=== PATIENT | female | born 1985 | race African-American/Black ===

== ENCOUNTER 2016-12-01 18:06 | Emergency (ER) | payer OTHER ==
[~2016-12-01] VITALS: Ht 162.6 cm; Wt 120.5 kg
[~2016-12-01 18:06] MED LIST: CYCL10 PO; IBUP-2070 PO; TRAM50TA4 PO
[2016-12-01] MEDS ORDERED: IBUPROFEN 800 MG TABLET PO ONE (18:30)
[2016-12-01 19:37] VITALS: BP 150/92
== END 2016-12-01 19:47 | disposition home or self-care (01) ==
LOC: EMS 18:06
DX: S93.402A Sprain of unspecified ligament of left ankle, initial encounter (principal); Z88.6 Allergy status to analgesic agent; I10 Essential (primary) hypertension; W50.2XXA Accidental twist by another person, initial encounter; Y93.01 Activity, walking, marching and hiking; Y92.488 Other paved roadways as the place of occurrence of the external cause; Y99.8 Other external cause status
CPT/HCPCS: 29540; 99284

== ENCOUNTER 2017-01-26 10:20 | Emergency (ER) | payer OTHER ==
[~2017-01-26] VITALS: Ht 160 cm; Wt 85.0 kg
[~2017-01-26 10:20] MED LIST changes: -IBUP-2070 PO; -TRAM50TA4 PO
[2017-01-26] MEDS ORDERED: GABA-529 PO (10:34)
[2017-01-26] MEDS ORDERED: TRAM50TA4 PO (10:34)
[2017-01-26 12:36] VITALS: BP 159/79
== END 2017-01-26 13:30 | disposition home or self-care (01) ==
LOC: EMS 10:21
DX: R10.30 Lower abdominal pain, unspecified (principal); I10 Essential (primary) hypertension; V49.40XA Driver injured in collision with unspecified motor vehicles in traffic accident, initial encounter; Y93.89 Activity, other specified; Y92.89 Other specified places as the place of occurrence of the external cause; Y99.8 Other external cause status
CPT/HCPCS: 99284

== ENCOUNTER 2017-05-13 22:30 | Emergency (ER) | payer OTHER ==
[~2017-05-13] VITALS: Ht 162.6 cm; Wt 120.0 kg
[~2017-05-13 22:30] MED LIST changes: +GABA-529 PO; +TRAM50TA4 PO
[2017-05-14 01:27] VITALS: BP 139/85
[2017-05-14] MEDS ORDERED: PredniSONE 20 MG TABLET PO ONE (01:45)
== END 2017-05-14 01:29 | disposition home or self-care (01) ==
LOC: EMS 22:35
DX: H60.91 Unspecified otitis externa, right ear (principal); H66.92 Otitis media, unspecified, left ear; I10 Essential (primary) hypertension
CPT/HCPCS: 99283; J7512

== ENCOUNTER 2018-04-16 20:25 | Observation (INO) | payer OTHER ==
[~2018-04-16] VITALS: Ht 162.6 cm; Wt 125.6 kg
[~2018-04-16 20:25] MED LIST changes: -CYCL10 PO; -TRAM50TA4 PO
[2018-04-16 21:39] VITALS: BP 127/71
[2018-04-16] MEDS ORDERED: PREN1TAB80 PO (21:45)
[2018-04-16] MEDS ORDERED: ACET-784 PO (21:46)
[2018-04-16 22:08] LABS: APPEARANCE,URINE CLEAR (CLEAR); BILIRUBIN,URINE NEGATIVE (NEGATIVE); GLUCOSE, URINE (UA) NEGATIVE (NEGATIVE); KETONES,URINE NEGATIVE (NEGATIVE); LEUKOCYTE ESTERASE ,URINE NEGATIVE (NEGATIVE); NITRATE,URINE NEGATIVE (NEGATIVE); OCCULT BLOOD,URINE NEGATIVE (NEGATIVE); PH,URINE 6.5 (5.0-8.0); PROTEIN,URINE NEGATIVE (NEGATIVE); UROBILINOGEN,URINE 0.2 mg/dL (<=1.0)
[2018-04-16] MEDS ORDERED: ALBU8HFA IH (23:11)
== END 2018-04-16 22:50 | disposition other institution (70) ==
LOC: 4S 20:25
PROVIDERS: ADMIT Obstetrics & Gynecology; ATTEND Obstetrics & Gynecology
DX: O26.892 Other specified pregnancy related conditions, second trimester (principal); M54.5 Low back pain; R10.9 Unspecified abdominal pain; Z3A.25 25 weeks gestation of pregnancy
CPT/HCPCS: 59025; 80307 ×8; 81003; G0378

== ENCOUNTER 2018-04-16 22:59 | Emergency (ER) | payer OTHER ==
[~2018-04-16] VITALS: Ht 162.6 cm; Wt 125.9 kg
[~2018-04-16 22:59] MED LIST changes: +ACET-784 PO; +PREN1TAB80 PO
[2018-04-16] MEDS ORDERED: ALBU8HFA IH (23:11)
[2018-04-17] MEDS ORDERED: IPRATROPIUM BROMIDE 0.5 MG/2.5 ML NEB SOLUTION NEB ONE (02:00)
[2018-04-17] MEDS ORDERED: ACETAMINOPHEN/CODEINE 300-30 MG TABLET PO ONE (02:00)
[2018-04-17] MEDS ORDERED: ALBUTEROL SULFATE 2.5 MG/0.5 ML NEB SOLUTION NEB ONE (02:00)
[2018-04-17] MEDS ORDERED: 0.9% SODIUM CHLORIDE 5 ML NEB SOLUTION NEB ONE (02:14)
[2018-04-17 03:33] VITALS: BP 132/78
== END 2018-04-17 04:25 | disposition home or self-care (01) ==
LOC: EMS 23:00
DX: O99.512 Diseases of the respiratory system complicating pregnancy, second trimester (principal); O16.2 Unspecified maternal hypertension, second trimester; O26.892 Other specified pregnancy related conditions, second trimester; J98.11 Atelectasis; R10.12 Left upper quadrant pain; G89.29 Other chronic pain; Z3A.25 25 weeks gestation of pregnancy
CPT/HCPCS: 71045; 94640; 99283; G0238; J7613